=== PATIENT | female | born 1930 | race Caucasian/White ===

== ENCOUNTER 2016-10-11 05:34 | Day surgery (SDC) | payer MEDICARE ==
[2016-10-11] MEDS ORDERED: Dextrose 5%-Lactated Ringers 1,000 ML IV SCH (06:30)
[2016-10-11] MEDS ORDERED: fentaNYL 100 MCG/2 ML SDV ONE (07:14)
[2016-10-11] MEDS ORDERED: Propofol 200 MG/20 ML SDV ONE (07:14)
[2016-10-11] MEDS ORDERED: Ampicillin/Sulbactam Na 3 GM in Sodium Chloride 0.9% 100 ML IV ONE ×4 (07:30)
[2016-10-11] MEDS ORDERED: Glycopyrrolate 0.2 MG/ML 2 ML SDV IVPUSH ONE (07:30)
[2016-10-11] MEDS ORDERED: Ondansetron 4 MG/2 ML SDV IVPUSH PRN (08:58)
[2016-10-11] MEDS ORDERED: HYDROmorphone 1 MG/ML Syringe IVPUSH PRN (09:00)
[2016-10-11 10:42] VITALS: BP 166/76
--- NOTE | 2016-10-17 13:40 | OR ---
DATE OF PROCEDURE: 10/11/2016 PREOPERATIVE DIAGNOSIS: Epigastric pain and nausea. POSTOPERATIVE DIAGNOSES: 1. No significant inflammation at the esophagogastric junction. 2. Multiple gastric polyps involving fundus and body of stomach. 3. Diffuse antral gastritis. OPERATIVE PROCEDURE: Esophagogastroduodenoscopy with: 1. Biopsies of antrum for CLOtest ([id number]). 2. Polypectomy of polyps involving gastric body x2 ([id number]). ANESTHESIA: IV sedation. INDICATION FOR PROCEDURE: An 86-year-old female presenting with some epigastric pain and some degree of nausea. She is presently on omeprazole 40 mg a day. Plan is proceed with an upper GI endoscopy with biopsies as indicated. Potential risks including bleeding and perforation were discussed, and the patient wishes to proceed. DETAILS OF PROCEDURE: The patient was taken to the operating room and placed in a left lateral decubitus position. IV sedation was administered, after which the upper GI endoscope was passed orally through the length of the esophagus and into the stomach with retroflexion view of the fundus, and thereafter through the pyloric channel and the duodenum to the junction of the third and fourth portions of the duodenum. The findings included normal hypopharynx, larynx, upper esophageal sphincter, and esophageal body. At the EG junction, no significant inflammation was noted. There was no upward extension of the columnar mucosa. The patient was noted to have a small hiatal hernia, but again without significant inflammation. Upon entering the stomach, the patient was noted to have multiple gastric polyps involving the fundus and body. 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 Apart from that, the patient had a moderate diffuse antral gastritis. The duodenum was unremarkable. At this point, biopsies were obtained from the antrum and sent for CLOtest for H. pylori to confirm the histologic nature of the gastric polyps. Two of these were excised by means of the snare technique and removed for histologic evaluation. No significant bleeding from the biopsy or polypectomy sites was seen, and the procedure was then concluded. The patient was taken to the recovery room in satisfactory condition. The patient has an appointment with Dina Gallo CNP at around 2 weeks. If the patient continues to have symptoms on the present medical management, something like Cytotec or Carafate might be useful with regard to symptom control. Valentino Du MD /[id number]
== END 2016-10-11 12:02 | disposition home or self-care (01) ==
LOC: JP.SDS 05:34
PROVIDERS: ATTEND Surgery
DX: K31.7 Polyp of stomach and duodenum (principal); K29.50 Unspecified chronic gastritis without bleeding; K44.9 Diaphragmatic hernia without obstruction or gangrene; I10 Essential (primary) hypertension; K21.9 Gastro-esophageal reflux disease without esophagitis; E78.00 Pure hypercholesterolemia, unspecified; E03.9 Hypothyroidism, unspecified; Z88.8 Allergy status to other drugs, medicaments and biological substances; Z91.09 Other allergy status, other than to drugs and biological substances; Z87.891 Personal history of nicotine dependence; Z90.49 Acquired absence of other specified parts of digestive tract; Z98.890 Other specified postprocedural states; Z96.649 Presence of unspecified artificial hip joint; Z94.0 Kidney transplant status
CPT/HCPCS: 43239; 43251; 87081; 88305; J0295; J2405; J2704; J3010; J7030; J7042; J3490

== ENCOUNTER 2017-09-12 07:20 | Day surgery (SDC) | payer MEDICARE ==
[~2017-09-12 07:20] MED LIST: Propofol 200 MG/20 ML SDV ONE
[2017-09-12] MEDS ORDERED: Dextrose 5%-Lactated Ringers 1,000 ML IV SCH (07:45)
[2017-09-12] MEDS ORDERED: Glycopyrrolate 0.2 MG/ML 2 ML SDV IVPUSH ONE (08:15)
[2017-09-12 10:51] VITALS: BP 143/68
--- NOTE | 2017-09-18 13:25 | OR ---
DATE OF PROCEDURE: 09/12/2017 PREOPERATIVE DIAGNOSIS: History of peptic ulcer disease with upcoming major surgery. POSTOPERATIVE DIAGNOSIS: Scattered fundic gastric polyps, but otherwise normal examination. OPERATIVE PROCEDURES: Upper GI endoscopy with biopsies of antrum for CLOtest. ANESTHESIA: IV sedation. INDICATION FOR PROCEDURE: This is an 87-year-old, who is having an upcoming orthopedic surgery with Dr. Kim, with history of previous GI bleeding issues, wished to have a followup endoscopy to make sure we are not dealing with any persistent problems in that regard. She does have a known history of some gastric fundic polyps, which had previously been biopsied, related to long-term proton pump inhibitor use. Potential risks including bleeding and perforation were discussed, and the patient wishes to proceed. DETAILS OF PROCEDURE: The patient was taken to the operating room and placed in a left lateral decubitus position. IV sedation was administered, after which the upper GI endoscope was passed orally through the length of the esophagus and into the stomach with retroflexion view of the fundus, and thereafter through the pyloric channel and into the junction of the third and fourth portions of the duodenum. Findings included normal hypopharynx, larynx, upper esophageal sphincter, and esophageal body. At the EG junction, no significant hiatal hernia, inflammation, or stricturing were present. Within the stomach, there was some scattered gastric fundic type polyps located in the fundus and body of the stomach. None of these appeared to be worrisome to any extent and were not associated with any inflammation or ulceration. The antrum had no significant inflammation as well at this point, and the pyloric channel and the visualized portions of the duodenum were unremarkable. To assess the patient's current H. pylori status, biopsies were obtained from the antrum. Minimal bleeding from the biopsy site was seen and the procedure then concluded. The patient was taken to the recovery room in a satisfactory condition. There were no evident complications. Dr. Kim's office will be notified. From a GI standpoint, she can proceed with the upcoming orthopedic surgery. Valentino Du MD /[id number]
== END 2017-09-12 11:10 | disposition home or self-care (01) ==
LOC: JP.SDS 07:20
PROVIDERS: ATTEND Surgery
DX: K31.7 Polyp of stomach and duodenum (principal); I10 Essential (primary) hypertension; E03.9 Hypothyroidism, unspecified; E78.5 Hyperlipidemia, unspecified; K21.9 Gastro-esophageal reflux disease without esophagitis; Z88.2 Allergy status to sulfonamides; Z88.8 Allergy status to other drugs, medicaments and biological substances; Z91.048 Other nonmedicinal substance allergy status; Z87.891 Personal history of nicotine dependence
CPT/HCPCS: 43239; 87081; J2704; J7042; J3490

== ENCOUNTER 2018-12-28 13:06 | Emergency (ER) | payer MEDICARE ==
--- NOTE | 2018-12-28 14:28 | EDM.PDOC ---
ED HPI GENERAL MEDICAL PROBLEM - General Chief Complaint: Abdominal Pain Stated Complaint: became faint and had stomach pains before Time Seen by Provider: 12/28/18 14:14 Source of Information: Reports: Patient History Limitations: Reports: No Limitations - History of Present Illness INITIAL COMMENTS - FREE TEXT/NARRATIVE: 88-year-old female arrives after several complaints. Yesterday she had chest pain for a half hour to 45 minutes but then after she relieve some "gas" she felt better. Today she was feeling better but then while sitting on the bed developed a very sharp sudden abdominal pain followed by dizziness, diaphoresis and lightheadedness. She laid down and thinks she fainted for a few minutes because when she woke up she had had stool incontinence in the bed. 4 hours later she now feels fairly normal, but [facility] when they questioned her how she was feeling and she told them the story and they told her to come immediately to the emergency room. She states still just feels a little "off" but has no pain, no dizziness, no lightheadedness, no fever or chills, no nausea or vomiting. Associated Symptoms: Reports: Chest Pain, Weakness. Denies: Cough, Nausea/ Vomiting, Shortness of Breath - Related Data Allergies Allergy/AdvReac Type Severity Reaction Status Date / Time Sulfa (Sulfonamide Allergy Hives Verified 12/28/18 13:59 Antibiotics) lisinopril AdvReac Cough Verified 12/28/18 13:59 sucralfate [From Carafate] AdvReac Abdominal Verified 12/28/18 13:59 Pain adhesive tape Allergy Rash Uncoded 12/28/18 13:59 grassleaf sweetflag rhizome Allergy Itching Uncoded 12/28/18 13:59 Home Meds: Home Meds Aspirin [Adult Low Dose Aspirin EC] 81 mg PO DAILY 02/04/13 [History] Docusate Sodium [Colace] 100 mg PO DAILY 02/04/13 [History] Levothyroxine [Synthroid] 88 mcg PO DAILY 02/04/13 [History] Omeprazole [Prilosec] 40 mg PO DAILY 02/04/13 [History] Acetaminophen [Tylenol Arthritis] 650 mg PO Q6H PRN 10/07/16 [History] Cetirizine [ZyrTEC] 10 mg PO DAILY 10/07/16 [History] Fluticasone Propionate [Flonase Allergy Relief] 2 spray NASBOTH DAILY 10/07/16 [ History] Montelukast [Singulair] 10 mg PO BEDTIME 10/07/16 [History] Propranolol [Inderal] 10 mg PO DAILY 09/05/17 [History] Past Medical History HEENT History: Reports: Allergic Rhinitis, Impaired Vision Cardiovascular History: Reports: Heart Murmur, High Cholesterol Gastrointestinal History: Reports: Cholelithiasis, Chronic Constipation, Diverticulosis, GERD Genitourinary History: Reports: None 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: Musculoskeletal History: Reports: Arthritis, Fracture, Other (See Below) Other Musculoskeletal History: left shoulder pain Endocrine/Metabolic History: Reports: Hypothyroidism Hematologic History: Reports: Anemia, Blood Transfusion(s), Iron Deficiency Oncologic (Cancer) History: Reports: Basal Cell Carcinoma - Infectious Disease History Infectious Disease History: Reports: Chicken Pox, Measles, Mumps, Scarlet Fever - Past Surgical History HEENT Surgical History: Reports: Visual Cardiovascular Surgical History: Reports: None GI Surgical History: Reports: Cholecystectomy, Colonoscopy, EGD Female Surgical History: Reports: D&C, Other (See Below) 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 Denies: Fever, Chills HEENT: Reports: No Symptoms Respiratory: Denies: Shortness of Breath, Cough Cardiovascular: Reports: Chest Pain (Chest pain was last evening lasted 30-45 minutes) GI/Abdominal: Reports: Abdominal Pain, Diarrhea : Reports: Incontinence Skin: Reports: No Symptoms Neurological: Reports: Syncope, Weakness ED EXAM, GI/ABD - Physical Exam Exam: See Below Exam Limited By: No Limitations General Appearance: Alert, No Apparent Distress Eyes: Bilateral: Normal Appearance Respiratory/Chest: No Respiratory Distress, Lungs Clear Cardiovascular: Regular Rate, Rhythm GI/Abdominal Exam: Tender (No guarding or rebound but some mild periumbilical tenderness is present. She also has a broad-based reducible soft and nontender hernia on the right lateral abdomen.), Abnormal Bowel Sounds (Bowel sounds are hyperactive, not high-pitched) Extremities: No: Pedal Edema Neurological: Alert, Oriented Psychiatric: Normal Affect, Normal Mood Skin Exam: Warm, Dry Course - Vital Signs Last Recorded V/S: Last Vital Signs Temp 98.8 F 12/28/18 14:04 Pulse 63 12/28/18 15:11 Resp 16 12/28/18 15:11 BP 151/82 H 12/28/18 15:11 Pulse Ox 100 12/28/18 15:11 - Orders/Labs/Meds Labs: Laboratory Tests 12/28/18 12/28/18 Range/Units 14:28 14:50 WBC 11.1 H (4.5-11.0) K/uL RBC 5.15 (3.30-5.50) M/uL Hgb 12.2 (12.0-15.0) g/dL Hct 38.3 (36.0-48.0) % MCV 74 L (80-98) fL MCH 24 L (27-31) pg MCHC 32 (32-36) % Plt Count 430 H (150-400) K/uL Neut % (Auto) 56 (36-66) % Lymph % (Auto) 27 (24-44) % Dare % (Auto) 13 H (2-6) % Eos % (Auto) 5 H (2-4) % Baso % (Auto) 0 (0-1) % Sodium 133 L (140-148) mmol/L Potassium 4.6 (3.6-5.2) mmol/L Chloride 99 L (100-108) mmol/L Carbon Dioxide 26 (21-32) mmol/L Anion Gap 12.6 (5.0-14.0) mmol/L BUN 26 H (7-18) mg/dL Creatinine 1.0 (0.6-1.0) mg/dL Est Cr Clr Drug Dosing 33.85 mL/min Estimated GFR (MDRD) 53 L (>60) Glucose 101 (74-106) mg/dL Calcium 9.5 (8.5-10.1) mg/dL Total Bilirubin 0.4 (0.2-1.0) mg/dL AST 16 (15-37) U/L ALT 21 (12-78) U/L Alkaline Phosphatase 92 (46-116) U/L Troponin I < 0.017 (0.000-0.056) ng/mL Total Protein 7.0 (6.4-8.2) g/dL Albumin 3.6 (3.4-5.0) g/dL Globulin 3.4 (2.3-3.5) g/dL Albumin/Globulin Ratio 1.1 L (1.2-2.2) - Re-Assessments/Exams Free Text/Narrative Re-Assessment/Exam: 12/28/18 14:30 Explained to the patient that I'm actually more concerned about her chest pain last night than her brief sharp abdominal pain which was likely functional or gas and followed by vasovagal syncope. A CBC CMP and troponin were obtained. 12/28/18 15:26 Patient remained asymptomatic while in the emergency room. All labs returned reassuring, hemoglobin normal, troponin negative, LFTs and electrolytes normal. She'll be discharge with a diagnosis of vasovagal syncope after abdominal pain. She'll return if symptoms are recurring but no further workup is necessary at this time. Departure - Departure Time of Disposition: 15:48 Disposition: Home, Self-Care 01 Clinical Impression: Vasovagal syncopes Abdominal pain Qualifiers: Abdominal location: upper abdomen, unspecified Qualified Code(s): R10.10 - Upper abdominal pain, unspecified - Discharge Information Instructions: Syncope Referrals: Rupesh Kim MD [Primary Care Provider] - Forms: ED Department Discharge Care Plan Goals: Continue any current medications, activity as tolerated and return for recheck if symptoms are recurring or you develop other concerns. You experienced vasovagal syncope.
[2018-12-28 15:12] VITALS: BP 151/82; PULSE 63
== END 2018-12-28 15:48 | disposition home or self-care (01) ==
LOC: JP.ED 13:06
DX: R55 Syncope and collapse (principal); R10.10 Upper abdominal pain, unspecified; E03.9 Hypothyroidism, unspecified; K21.9 Gastro-esophageal reflux disease without esophagitis; Z88.8 Allergy status to other drugs, medicaments and biological substances; Z88.2 Allergy status to sulfonamides; Z91.048 Other nonmedicinal substance allergy status; Z79.82 Long term (current) use of aspirin; Z87.891 Personal history of nicotine dependence
CPT/HCPCS: 36415; 80053; 84484; 85025; 99283

== ENCOUNTER 2019-03-16 09:32 | Emergency (ER) | payer MEDICARE ==
[2019-03-16 09:52] VITALS: BP 188/66; PULSE 68
[2019-03-16] MEDS ORDERED: Bacitracin Oint 1 GM U/D Packet TOP ONE (10:19)
[2019-03-16] MEDS ORDERED: Acetaminophen 325 MG Tab PO ONE (10:19)
--- NOTE | 2019-03-16 10:25 | EDM.PDOC ---
ED HPI GENERAL MEDICAL PROBLEM - General Chief Complaint: Head Injury Stated Complaint: FELL AND HIT HEAD Time Seen by Provider: 03/16/19 10:14 Source of Information: Reports: Patient, Family, RN Notes Reviewed History Limitations: Reports: No Limitations - History of Present Illness INITIAL COMMENTS - FREE TEXT/NARRATIVE: 88-year-old female presents emergency with a complaint of head injury with loss of consciousness, she states she has had some dizziness in the past initially woke up this morning feeling somewhat dizzy lightheaded so she describes it was making herself something to eat next thing she knew she awoke on the ground unsure of how long she was out this was an unwitnessed event she did injure herself with the fall with a laceration to the back of the head. She was able to go to the phone call for help while leaning on a chair lost consciousness again because she felt lightheaded. Headache Pain Score (Numeric/FACES): 8 - Related Data Allergies Allergy/AdvReac Type Severity Reaction Status Date / Time Sulfa (Sulfonamide Allergy Hives Verified 03/16/19 09:52 Antibiotics) lisinopril AdvReac Cough Verified 03/16/19 09:52 sucralfate [From Carafate] AdvReac Abdominal Verified 03/16/19 09:52 Pain adhesive tape Allergy Rash Uncoded 03/16/19 09:52 grassleaf sweetflag rhizome Allergy Itching Uncoded 03/16/19 09:52 Home Meds: Home Meds Aspirin [Adult Low Dose Aspirin EC] 81 mg PO DAILY 02/04/13 [History] Docusate Sodium [Colace] 100 mg PO DAILY 02/04/13 [History] Levothyroxine [Synthroid] 88 mcg PO DAILY 02/04/13 [History] Omeprazole [Prilosec] 40 mg PO DAILY 02/04/13 [History] Acetaminophen [Tylenol Arthritis] 650 mg PO Q6H PRN 10/07/16 [History] Cetirizine [ZyrTEC] 10 mg PO DAILY 10/07/16 [History] Montelukast [Singulair] 10 mg PO BEDTIME 10/07/16 [History] Propranolol [Inderal] 10 mg PO DAILY 09/05/17 [History] Past Medical History HEENT History: Reports: Allergic Rhinitis, Impaired Vision Cardiovascular History: Reports: Heart Murmur, High Cholesterol Gastrointestinal History: Reports: Cholelithiasis, Chronic Constipation, Diverticulosis, GERD 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: Musculoskeletal History: Reports: Arthritis, Fracture, Other (See Below) Other Musculoskeletal History: left shoulder pain Endocrine/Metabolic History: Reports: Hypothyroidism Hematologic History: Reports: Anemia, Blood Transfusion(s), Iron Deficiency Oncologic (Cancer) History: Reports: Basal Cell Carcinoma - Infectious Disease History Infectious Disease History: Reports: Chicken Pox, Measles, Mumps, Scarlet Fever - Past Surgical History Head Surgeries/Procedures: Reports: None HEENT Surgical History: Reports: Cataract Surgery, Eye Surgery, Visual, Other ( See Below) Cardiovascular Surgical History: Reports: None GI Surgical History: Reports: Cholecystectomy, Colonoscopy, EGD Female Surgical History: Reports: D&C, Other (See Below) 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 Endocrine Surgical History: Reports: None Musculoskeletal Surgical History: Reports: Carpal Tunnel, Hip Replacement, Shoulder Replacement Oncologic Surgical History: Reports: None Dermatological Surgical History: Reports: None Social & Family History - Family History Family Medical History: Noncontributory - Tobacco Use Smoking Status *Q: Former Smoker Used Tobacco, but Quit: Yes Month/Year Tobacco Last Used: 1985 - Caffeine Use Caffeine Use: Reports: Tea - Recreational Drug Use Recreational Drug Use: No ED ROS GENERAL - Review of Systems Review Of Systems: See Below Constitutional: Reports: No Symptoms HEENT: Reports: No Symptoms Respiratory: Reports: No Symptoms Cardiovascular: Reports: Lightheadedness, Syncope GI/Abdominal: Reports: No Symptoms : Reports: No Symptoms Musculoskeletal: Reports: No Symptoms Skin: Reports: No Symptoms Neurological: Reports: Dizziness, Syncope ED EXAM, HEAD INJURY - Physical Exam Exam: See Below Text/Narrative:: Primary survey GCS 15 airways open patent and clear lungs are clear to auscultation bilaterally cardiovascular demonstrates regular rate and rhythm S1- S2 Secondary survey General: Female, not in any distress, GCS 15, alert and oriented x3 HEENT: head is circular laceration appreciated occipital region scalp approximately 3 cm normocephalic, right eye equal reactive to light left eye fixed and dilated anisocoria is not new, sclera clear no conjunctivitis appreciated. Ears tympanic membranes clear and foster landmarks and light reflex are present bilaterally canals are clear. Nose no septal deviation, nares are clear, no blood present. Mouth mucosa is moist and pink no erythema or exudate noted in soft palate, tongue is midline uvula is midline, dentures in place. Neck: Supple no thyromegaly no tracheal deviation. NO posterior midline C-spine tenderness NO evidence of intoxication GCS > 14 No focal neurological deficit NO distracting injury Nodes: Cervical nodes subclavicular nodes nontender no palpable lymphadenopathy noted. Lungs: clear to auscultation bilaterally with symmetrical respirations, no adventitious noise appreciated. CV: Regular rate and rhythm S1 and S2 appreciated no murmurs rubs or gallops noted. Abdomen: Soft, nontender, no palpable masses or organomegaly appreciated, no distention no guarding bowel sounds are present, [scars ]. Neuro: GCS 15 Skin: Warm and dry, intact Extremities: No tenderness shoulders elbows wrist bilaterally pelvic rocks is negative no tenderness to the knees ankles bilaterally ED LACERATION/WOUND & SHAWN PROC - Laceration/Wound Repair Head Lac/wound length in cm: 3 Appearance: Subcutaneous, Irregular Distal NVT: Neuro & Vascular Intact, No Tendon Injury Anesthetic Type: Local Local Anesthesia - Lidocaine (Xylocaine): 1% with EPI Local Anesthetic Volume: 2cc Skin Prep: Saline Saline irrigation (cc's): 60 Exploration/Debridement/Repair: Wound Explored, In a Bloodless Field, Explored to Base Closed with: Flores # of Sutures: 4 Drain Placement: No Sterile Dressing Applied: None Tetanus Status Addressed: Yes Complications: No Course - Vital Signs Last Recorded V/S: Last Vital Signs Temp 97.7 F 03/16/19 09:58 Pulse 68 03/16/19 09:58 Resp 16 03/16/19 09:58 BP 188/66 H 03/16/19 09:58 Pulse Ox 97 03/16/19 09:58 - Orders/Labs/Meds Orders: Active Orders 24 hr Category Date Time Status EKG Documentation Completion [RC] ASDIRECTED Care 03/16/19 10:21 Active EKG 12 Lead [EK] Stat Ther 03/16/19 10:21 Ordered Meds: Medications Discontinued Medications Generic Name Dose Route Start Last Admin Trade Name Freq PRN Reason Stop Dose Admin Acetaminophen 650 mg 03/16/19 10:19 03/16/19 10:23 Tylenol PO 03/16/19 10:20 650 mg NOW ONE Administration Bacitracin 1 dose 03/16/19 10:19 03/16/19 10:24 Bacitracin Oint 1 Gm TOP 03/16/19 10:20 1 dose ONETIME ONE Administration Lidocaine/Epinephrine 20 ml 03/16/19 10:30 03/16/19 10:43 Xylocaine 1% With Epinephrine 1:100,000 SUBCUT 03/16/19 10:31 20 ml NOW STA Administration Meclizine HCl 25 mg 03/16/19 11:09 03/16/19 11:14 Antivert PO 03/16/19 11:10 25 mg ONETIME ONE Administration Departure - Departure Time of Disposition: 12:34 Disposition: Home, Self-Care 01 Condition: Fair Clinical Impression: Head injury, Scalp laceration, Syncope - Discharge Information Referrals: Rupesh Kim MD [Primary Care Provider] - Forms: ED Department Discharge Additional Instructions: Use meclizine as needed for dizzy symptoms, please followup with your primary care provider in 3-5 days if not better, please call return to the emergency department with worsening of symptoms. Sepsis Event Note - Evaluation Sepsis Screening Result: No Definite Risk - Focused Exam Vital Signs: Vital Signs Temp Pulse Resp BP Pulse Ox 03/16/19 09:58 97.7 F 68 16 188/66 H 97 03/16/19 09:51 97.7 F 68 16 188/66 H 97 Date Exam was Performed: 03/16/19 Time Exam was Performed: 12:32 - My Orders Last 24 Hours: My Active Orders 03/16/19 10:21 EKG Documentation Completion [RC] ASDIRECTED EKG 12 Lead [EK] Stat - Assessment/Plan Last 24 Hours: My Active Orders 03/16/19 10:21 EKG Documentation Completion [RC] ASDIRECTED EKG 12 Lead [EK] Stat Plan: Assessment Acuity = acute Site and laterality = head injury with 3 cm laceration occipital region of the scalp Etiology = secondary to fall by syncope Manifestations = lightheadedness Location of injury = Home Lab values = EKG demonstrates sinus rhythm right bundle branch block with PVCs, CT scan of the head reveals no acute intracranial process, right shoulder x-ray shows no acute process Plan She had good relief with combination Tylenol and meclizine plan is to discharge home follow-up primary care 3 to 5 days if no improvement, staple removal in 10 days, prescription written for meclizine 25 mg p.o. 3 times daily PRN total #100 This note was dictated using [employer] recognition software please call with any questions on syntax or grammar.
[2019-03-16] MEDS ORDERED: Lidocaine 1% with EPINEPHrine 1:100,000 50 ML MDV SUBCUT STA (10:30)
--- NOTE | 2019-03-16 11:08 | CRLCT ---
INDICATION: FALL, LOC. Comparison: Head CT dated 08/02/18 Technique: Non-contrast head CT scan. Findings: Diffuse decreased attenuation of the periventricular white matter which likely represents small vessel ischemic disease. No other abnormal foci of altered attenuation in the brain parenchyma. No midline shift or mass effect. No hydrocephalus. No abnormal extra-axial fluid collections. Mild atrophic changes of the brain parenchyma. No abnormalities identified in the visualized portions of the paranasal sinuses, skull, and scalp. Impression: No evidence of acute intracranial abnormalities. Please note that all CT scans at this facility use dose modulation, iterative reconstruction, and/or weight-based dosing when appropriate to reduce radiation dose to as low as reasonably achievable. Dictated by: Julio C Scott MD @ 03/16/2019 11:06:39 (Electronically Signed)
[2019-03-16] MEDS ORDERED: Meclizine 25 MG Tab PO ONE (11:09)
--- NOTE | 2019-03-16 12:18 | CRLCR ---
Indication: Pain. Technique: Three views of the right shoulder. Comparison: None Findings: The humeral head is high riding which can be seen with rotator cuff pathology. The humeral head is seated within the glenoid. Degenerative changes are identified at the acromioclavicular and glenohumeral joint spaces. Impression: Degenerative change. Dictated by Marsha Mcclelland MD @ Mar 16 2019 12:16PM Signed by Dr. Marsha Mcclelland @ Mar 16 2019 12:17PM
== END 2019-03-16 12:55 | disposition home or self-care (01) ==
LOC: JP.ED 09:32
DX: R55 Syncope and collapse (principal); S01.01XA Laceration without foreign body of scalp, initial encounter; E78.00 Pure hypercholesterolemia, unspecified; E03.9 Hypothyroidism, unspecified; Z88.2 Allergy status to sulfonamides; Z91.09 Other allergy status, other than to drugs and biological substances; Z79.899 Other long term (current) drug therapy; Z79.82 Long term (current) use of aspirin; Z88.8 Allergy status to other drugs, medicaments and biological substances; W19.XXXA Unspecified fall, initial encounter
CPT/HCPCS: 12002; 70450; 73030; 93005; 93010; 99283; 99284; A9270

== ENCOUNTER 2019-07-01 19:02 | Observation (INO) | payer MEDICARE ==
[2019-07-01] MEDS ORDERED: fentaNYL 100 MCG/2 ML SDV IVPUSH ONE ×2 (19:38→21:09)
[2019-07-01] MEDS ORDERED: Sodium Chloride 0.9% 10 ML Syringe FLUSH PRN (19:38)
--- NOTE | 2019-07-01 19:42 | EDM.PDOC ---
ED HPI GENERAL MEDICAL PROBLEM - General Chief Complaint: Lower Extremity Injury/Pain Stated Complaint: HIP PAIN Time Seen by Provider: 07/01/19 19:29 Source of Information: Reports: Patient History Limitations: Reports: Physical Impairment - History of Present Illness INITIAL COMMENTS - FREE TEXT/NARRATIVE: Patient presents with a friend after developing sudden, severe right hip pain while climbing into her vehicle this evening. 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 She was able to hobble into her house but did so very painfully. She had too much pain to bring herself here and had a friend drive her. She has had right hip replacement 3 or 4 years ago she believes. She did not fall. No recent injuries to her lower extremities or pelvis. Onset: Today, Sudden Duration: Hour(s): (Two) Location: Reports: Back, Pelvis, Lower Extremity, Right Quality: Reports: Sharp, Stabbing Severity: Severe Improves with: Reports: None Worsens with: Reports: Movement Associated Symptoms: Reports: No Other Symptoms Right Hip Pain Score (Numeric/FACES): 10 - Related Data Allergies Allergy/AdvReac Type Severity Reaction Status Date / Time Sulfa (Sulfonamide Allergy Hives Verified 07/02/19 00:46 Antibiotics) lisinopril AdvReac Cough Verified 07/02/19 00:46 sucralfate [From Carafate] AdvReac Abdominal Verified 07/02/19 00:46 Pain adhesive tape Allergy Rash Uncoded 07/02/19 00:46 grassleaf sweetflag rhizome Allergy Itching Uncoded 07/02/19 00:46 Home Meds: Home Meds Aspirin [Adult Low Dose Aspirin EC] 81 mg PO DAILY 02/04/13 [History] Docusate Sodium [Colace] 100 mg PO DAILY 02/04/13 [History] Levothyroxine [Synthroid] 88 mcg PO DAILY 02/04/13 [History] Omeprazole [Prilosec] 40 mg PO DAILY 02/04/13 [History] Acetaminophen [Tylenol Arthritis] 650 mg PO Q6H PRN 10/07/16 [History] Cetirizine [ZyrTEC] 10 mg PO DAILY 10/07/16 [History] Montelukast [Singulair] 10 mg PO BEDTIME 10/07/16 [History] Propranolol [Inderal] 10 mg PO DAILY 09/05/17 [History] Past Medical History HEENT History: Reports: Allergic Rhinitis, Impaired Vision Cardiovascular History: Reports: Heart Murmur, High Cholesterol Gastrointestinal History: Reports: Cholelithiasis, Chronic Constipation, Diverticulosis, GERD Genitourinary History: Reports: None MANAGER OF DEVELOPMENT History: Reports: Musculoskeletal History: Reports: Arthritis, Fracture, Other (See Below) Other Musculoskeletal History: left shoulder pain Endocrine/Metabolic History: Reports: Hypothyroidism Hematologic History: Reports: Anemia, Blood Transfusion(s), Iron Deficiency Oncologic (Cancer) History: Reports: Basal Cell Carcinoma - Infectious Disease History Infectious Disease History: Reports: Chicken Pox, Measles, Mumps, Scarlet Fever - Past Surgical History Head Surgeries/Procedures: Reports: None HEENT Surgical History: Reports: Cataract Surgery, Eye Surgery, Visual, Other ( See Below) Cardiovascular Surgical History: Reports: None GI Surgical History: Reports: Cholecystectomy, Colonoscopy, EGD Female Surgical History: Reports: D&C, Other (See Below) 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 Endocrine Surgical History: Reports: None Musculoskeletal Surgical History: Reports: Carpal Tunnel, Hip Replacement, Shoulder Replacement Oncologic Surgical History: Reports: None Dermatological Surgical History: Reports: None Social & Family History - Family History Family Medical History: Noncontributory - Caffeine Use Caffeine Use: Reports: Tea Review of Systems - Review of Systems Review Of Systems: See Below Respiratory: Reports: No Symptoms Cardiovascular: Reports: No Symptoms Musculoskeletal: Reports: Back Pain (Right low lumbar region.), Leg Pain (Right hip and thigh region) Neurological: Denies: Numbness, Weakness ED EXAM, GENERAL - Physical Exam Exam: See Below Exam Limited By: No Limitations General Appearance: Moderate Distress (With palpation or manipulation of the right leg and thigh.) Respiratory/Chest: No Respiratory Distress Cardiovascular: Regular Rate, Rhythm Extremities: Leg Pain, Limited Range of Motion (Attempts at manipulation and circumduction of the right hip region results in severe pain. Palpation along the lateral and posterior aspect of the right hip also produces intense pain. There is pain to a lesser degree in the right low back region and pelvis.) Neurological: Normal Cognition Course - Vital Signs Last Recorded V/S: Last Vital Signs Temp 36.4 C 07/02/19 00:00 Pulse 78 07/02/19 00:00 Resp 18 07/02/19 00:00 BP 175/61 H 07/02/19 00:00 Pulse Ox 91 L 07/02/19 00:00 - Orders/Labs/Meds Orders: Active Orders 24 hr Category Date Time Status Sodium Chloride 0.9% [Saline Flush] Med 07/01/19 19:38 Active 10 ml FLUSH ASDIRECTED PRN Saline Lock Insert [OM.PC] Routine Oth 07/01/19 19:38 Ordered Medication Orders Acetaminophen (Tylenol) 650 mg PO Q6H PRN PRN Reason: Pain Aspirin (Halfprin) 81 mg PO DAILY ZAHIDA Cetirizine HCl (Zyrtec) 10 mg PO DAILY ZAHIDA Docusate Sodium (Colace) 100 mg PO DAILY ZAHIDA Hydromorphone HCl (Dilaudid) 0.5 mg IVPUSH Q1H PRN PRN Reason: Pain Last Admin: 07/02/19 01:36 Dose: 0.5 mg Levothyroxine Sodium (Synthroid) 88 mcg PO ACBREAKFAST ZAHIDA Montelukast Sodium (Singulair) 10 mg PO BEDTIME ZAHIDA Ondansetron HCl (Zofran) 4 mg IV Q4H PRN PRN Reason: Nausea/Vomiting Pantoprazole Sodium (Protonix) 40 mg PO ACBREAKFAST ZAHIDA Propranolol HCl (Inderal) 10 mg PO DAILY ZAHIDA Sodium Chloride (Saline Flush) 10 ml FLUSH ASDIRECTED PRN PRN Reason: Keep Vein Open Last Admin: 07/01/19 19:53 Dose: 10 ml Sodium Chloride (Saline Flush) 10 ml FLUSH ASDIRECTED PRN PRN Reason: Keep Vein Open Meds: Medications Generic Name Dose Route Start Last Admin Trade Name Freq PRN Reason Stop Dose Admin Acetaminophen 650 mg 07/02/19 00:19 Tylenol PO Q6H PRN Pain Aspirin 81 mg 07/02/19 09:00 Halfprin PO DAILY ZAHIDA Cetirizine HCl 10 mg 07/02/19 09:00 Zyrtec PO DAILY ZAHIDA Docusate Sodium 100 mg 07/02/19 09:00 Colace PO DAILY ZAHIDA Hydromorphone HCl 0.5 mg 07/02/19 00:06 07/02/19 01:36 Dilaudid IVPUSH 0.5 mg Q1H PRN Administration Pain Levothyroxine Sodium 88 mcg 07/02/19 07:30 Synthroid PO ACBREAKFAST ZAHIDA Montelukast Sodium 10 mg 07/02/19 21:00 Singulair PO BEDTIME ZAHIDA Ondansetron HCl 4 mg 07/02/19 00:00 Zofran IV Q4H PRN Nausea/Vomiting Pantoprazole Sodium 40 mg 07/02/19 07:30 Protonix PO ACBREAKFAST ZAHIDA Propranolol HCl 10 mg 07/02/19 09:00 Inderal PO DAILY ZAHIDA Sodium Chloride 10 ml 07/01/19 19:38 07/01/19 19:53 Saline Flush FLUSH 10 ml ASDIRECTED PRN Administration Keep Vein Open Sodium Chloride 10 ml 07/02/19 00:00 Saline Flush FLUSH ASDIRECTED PRN Keep Vein Open Discontinued Medications Generic Name Dose Route Start Last Admin Trade Name Freq PRN Reason Stop Dose Admin Fentanyl 50 mcg 07/01/19 19:38 07/01/19 19:52 Sublimaze IVPUSH 07/01/19 19:39 50 mcg ONETIME ONE Administration Fentanyl 50 mcg 07/01/19 21:09 07/01/19 21:29 Sublimaze IVPUSH 07/01/19 21:10 50 mcg ONETIME ONE Administration Hydromorphone HCl 0.5 mg 07/02/19 00:08 07/02/19 00:12 Dilaudid IVPUSH 07/02/19 00:09 0.5 mg ONETIME ONE Administration Ondansetron HCl 4 mg 07/01/19 21:41 07/01/19 21:46 Zofran IVPUSH 07/01/19 21:42 4 mg ONETIME ONE Administration - Re-Assessments/Exams Free Text/Narrative Re-Assessment/Exam: 07/01/19 21:12 Patient was given fentanyl 50 g for pain. I returned later to recheck and she was at least 50% better. X-ray of right hip and pelvis did not show any obvious abnormality to me. Outside radiology review is negative for fracture or abnormality as well. I discussed with her that because of the normal regular x- ray, I would do a CT scan of her hip region to look for occult fracture. Later, she requested an additional dose of pain medication and was given a second 50 g fentanyl dose. 07/02/19 02:[address] scan were eventually finalized and showed no evidence of fracture. I returned again to attempt to reexamine the hip, thigh, low back region. She continues to have sudden paroxysms of sharp stabbing pain in the right hip and back region. We discussed attempting to navigate at home using a wheeled walker and pain medication of choice versus admission here for possible additional consultation and imaging studies. Her one month ago and she is very nervous about being at home right now given the extent of her hip pain. There is no obvious occult fracture and I discussed with her that perhaps her pain is from [id number] contact when twisting and moving. I will discuss her case with the hospitalist application dba to arrange admission for intractable pain and appropriate additional evaluations. Departure - Departure Time of Disposition: 22:52 Disposition: Admitted As Inpatient 68 Condition: Fair Clinical Impression: Hip pain, right - Discharge Information Sepsis Event Note - Evaluation Sepsis Screening Result: No Definite Risk - Focused Exam Vital Signs: Vital Signs Temp Pulse Resp BP Pulse Ox 07/01/19 21:36 71 194/78 H 91 L 07/01/19 20:44 62 16 170/56 H 90 L 07/01/19 19:30 36.9 C 81 16 212/69 H 98 Date Exam was Performed: 07/02/19 Time Exam was Performed: 02:47 - My Orders Last 24 Hours: My Active Orders 07/01/19 19:38 Sodium Chloride 0.9% [Saline Flush] 10 ml FLUSH ASDIRECTED PRN Saline Lock Insert [OM.PC] Routine - Assessment/Plan Last 24 Hours: My Active Orders 07/01/19 19:38 Sodium Chloride 0.9% [Saline Flush] 10 ml FLUSH ASDIRECTED PRN Saline Lock Insert [OM.PC] Routine
--- NOTE | 2019-07-01 20:47 | CRLCR ---
INDICATION: severe right sided hip pain after getting into a car HISTORY: Severe right hip pain. COMPARISON: None. TECHNIQUE: AP radiograph of the pelvis, single view of the right hip. FINDINGS: There are postoperative changes of a right hip arthroplasty. No periprosthetic fracture is identified. No lucency is identified to indicate motion. Vascular calcifications. The symphysis pubis and superior/inferior pubic rami are intact. Degenerative changes at the left hip. No collapse of the left femoral head. Arcuate lines in the sacrum are intact. No soft tissue mass by plain film. No suspicious calcification. IMPRESSION: No fracture is identified in the pelvis or proximal femora. Dictated by Julio Suazo MD @ 07/01/2019 8:45:09 PM Dictated by: Julio Suazo MD @ 07/01/2019 20:45:16 (Electronically Signed)
[2019-07-01] MEDS ORDERED: Ondansetron 4 MG/2 ML SDV IVPUSH ONE (21:41)
--- NOTE | 2019-07-01 22:30 | CRLCT ---
INDICATION: Severe right hip and pelvic pain without known trauma. COMPARISON: Plain film same day. CT of the pelvis 11 October 2007. TECHNIQUE: Multi detector noncontrast images of the bony pelvis with axial, coronal and sagittal reformats. FINDINGS: Right hip bipolar arthroplasty prosthesis. No surrounding fracture or periprosthetic loosening. No evidence for significant fluid within the joint or surrounding soft tissues. Dystrophic mineralization in the hamstring tendons bilaterally. No muscle atrophy appreciated. 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 Degenerative disc and facet changes in the visualized lumbosacral spine. No sacral or pelvic fracture. 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 No erosion. Scattered atherosclerotic vascular calcifications. No fluid or mass in the visualized pelvis or groin. Presumed hysterectomy and oophorectomy. There is indistinct tissue planes and edema appearance surrounding slightly expanded distal iliopsoas muscle and adductor muscles and medial compartment muscles of the proximal visualized right thigh. No soft tissue mass or fluid collection. IMPRESSION: Subtle edema attenuation around the adductor muscles, iliopsoas and proximal medial compartment muscles at the medial proximal right thigh. Query recent direct trauma or muscle strain. Infection felt less likely but not excluded. No definitive mass. Degenerative changes of the left hip, symphysis pubis and sacroiliac joints and spine. Right hip prosthesis. Please note that all CT scans at this facility use dose modulation, iterative reconstruction, and/or weight-based dosing when appropriate to reduce radiation dose to as low as reasonably achievable. Dictated by Anshu Anderson MD @ Jul 02 2019 8:15AM Signed by Dr. Anshu Anderson @ Jul 02 2019 8:22AM
[2019-07-02] MEDS ORDERED: Ondansetron 4 MG/2 ML SDV IV PRN
[2019-07-02] MEDS ORDERED: Sodium Chloride 0.9% 10 ML Syringe FLUSH PRN
[2019-07-02] MEDS ORDERED: HYDROmorphone 0.5 MG/0.5 ML Syringe IVPUSH ONE (00:08)
[2019-07-02] MEDS: HYDROmorphone 0.5 MG/0.5 ML Syringe IVPUSH PRN ×3 (01:36→09:11)
[2019-07-02] MEDS ORDERED: Levothyroxine 88 MCG Tab PO SCH (07:30)
[2019-07-02] MEDS ORDERED: Pantoprazole 40 MG Tab.CR PO SCH (07:30)
[2019-07-02] MEDS ORDERED: Propranolol 40 MG Tab PO SCH (09:00)
--- NOTE | 2019-07-02 10:25 | PCM.CONS ---
H&P History of Present Illness - General Date of Service: 07/02/19 Admit Problem/Dx: Admission Diagnosis/Problem Admission Diagnosis/Problem Hip pain Source of Information: Patient, Provider History Limitations: Reports: No Limitations - History of Present Illness Initial Comments - Free Text/Narative: 88 year old female admitted from [facility] ED last night with sudden onset of right hip and low back pain. She has a history of a right total hip arthroplasty done a few years ago and other than an occasional aching with weather changes she has not had any problems with it. She had a sudden sharp pain while stepping into her vehicle last night. she does not report feeling any pop or crack at the time. Pain is in the right posterior hip and SI region and groin with some radiation into the thigh and up into the low back. She was able to weight bear with difficulty. She reports little change overnight. She was able to get up to the commode this morning with assist and increased pain. She has pain rated at 4/10 in bed. No radiation below the knee, no complaints of tingling or numbness Onset of Symptoms: Reports: Sudden Symptom Onset Date: 07/01/19 Location: Reports: Lower Extremity, Right (hip) Quality: Reports: Sharp, Stabbing Severity: Severe Improves with: Reports: Rest Worsens with: Reports: Movement Associated Symptoms: Reports: No Other Symptoms Right Hip Pain Score (Numeric/FACES): 4 - Related Data Allergies/Adverse Reactions: Allergies Allergy/AdvReac Type Severity Reaction Status Date / Time Sulfa (Sulfonamide Allergy Hives Verified 07/02/19 00:46 Antibiotics) lisinopril AdvReac Cough Verified 07/02/19 00:46 sucralfate [From Carafate] AdvReac Abdominal Verified 07/02/19 00:46 Pain adhesive tape Allergy Rash Uncoded 07/02/19 00:46 grassleaf sweetflag rhizome Allergy Itching Uncoded 07/02/19 00:46 Home Medications: Home Meds Aspirin [Adult Low Dose Aspirin EC] 81 mg PO DAILY 02/04/13 [History] Docusate Sodium [Colace] 100 mg PO DAILY 02/04/13 [History] Levothyroxine [Synthroid] 88 mcg PO DAILY 02/04/13 [History] Omeprazole [Prilosec] 40 mg PO DAILY 12/02/13 [History] Acetaminophen [Tylenol Arthritis] 650 mg PO Q6H PRN 10/07/16 [History] Cetirizine [ZyrTEC] 10 mg PO DAILY 10/07/16 [History] Montelukast [Singulair] 10 mg PO BEDTIME 10/07/16 [History] Propranolol [Inderal] 10 mg PO DAILY 09/05/17 [History] Past Medical History HEENT History: Reports: Allergic Rhinitis, Impaired Vision Cardiovascular History: Reports: Heart Murmur, High Cholesterol Gastrointestinal History: Reports: Cholelithiasis, Chronic Constipation, Diverticulosis, GERD Genitourinary History: Reports: None Other Genitourinary History: 1 kidney 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: Musculoskeletal History: Reports: Arthritis, Fracture, Other (See Below) Other Musculoskeletal History: left shoulder pain Endocrine/Metabolic History: Reports: Hypothyroidism Hematologic History: Reports: Anemia, Blood Transfusion(s), Iron Deficiency Oncologic (Cancer) History: Reports: Basal Cell Carcinoma - Infectious Disease History Infectious Disease History: Reports: Chicken Pox, Measles, Mumps, Scarlet Fever - Past Surgical History Head Surgeries/Procedures: Reports: None HEENT Surgical History: Reports: Cataract Surgery, Eye Surgery, Visual, Other ( See Below) Cardiovascular Surgical History: Reports: None GI Surgical History: Reports: Cholecystectomy, Colonoscopy, EGD Female Surgical History: Reports: D&C, Other (See Below) 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 Exam - Exam Exam: See Below - Vital Signs Vital Signs: Last Vital Signs Temp 36.6 C 07/02/19 07:42 Pulse 79 07/02/19 07:42 Resp 14 07/02/19 07:42 BP 148/54 H 07/02/19 07:42 Pulse Ox 92 L 07/02/19 07:42 Weight: 60.6 kg - Exam Extremities: Normal Inspection Skin: Warm, Dry, Intact Neuro Extensive - Mental Status: Alert, Oriented x3, Normal Mood/Affect, Normal Cognition, Memory Intact Neuro Extensive - Motor, Sensory, Reflexes: Other (no sensory deficits) Physical Exam Comments:: Well healed anterior hip scar, no swelling, .warmth or redness, very tender to palpation in the anterior hip and groin and posterior hip, less so over the trochanter, mild pain with slight log roll of the leg, worse with more motion and any attempted active hip flexion - Patient Data Lab Results Last 24 hrs: Laboratory Results - last 24 hr 07/02/19 07/02/19 Range/Units 09:36 09:36 C-Reactive Protein 0.96 H (0.0-0.3) mg/dL Procalcitonin < 0.05 ng/mL Sepsis Event Note - Evaluation Sepsis Screening Result: No Definite Risk - Focused Exam Vital Signs: Vital Signs Temp Pulse Resp BP Pulse Ox 07/02/19 07:42 36.6 C 79 14 148/54 H 92 L 07/02/19 04:00 36.6 C 75 14 173/67 H 93 L 07/02/19 00:00 36.4 C 78 18 175/61 H 91 L Date Exam was Performed: 07/02/19 Time Exam was Performed: 10:17 Consult PN Assessment/Plan Procedures: Procedures ASSAY OF BLOOD/URIC ACID (10/11/14) ASSAY OF TROPONIN QUANT (12/28/18) BONE IMAGING WHOLE BODY (12/17/18) CANALITH REPOSITIONING PROC (04/04/19) CARDIOVASCULAR STRESS TEST (09/07/17) COMP SCREEN MAMMOGRAM ADD-ON (09/09/15) COMPLETE CBC W/AUTO DIFF WBC (12/28/18) COMPREHEN METABOLIC PANEL (12/28/18) CT HEAD/BRAIN W/O DYE (03/16/19) CULTURE SCREEN ONLY (09/12/17) EGD BIOPSY SINGLE/MULTIPLE (09/12/17) EGD REMOVE LESION SNARE (10/11/16) ELECTROCARDIOGRAM REPORT (03/16/19) ELECTROCARDIOGRAM TRACING (03/16/19) EMERGENCY DEPT VISIT (03/16/19) EMERGENCY DEPT VISIT (03/16/19) EMERGENCY DEPT VISIT (12/28/18) EXTRACRANIAL BILAT STUDY (02/07/17) EXTREMITY STUDY (04/11/19) GAIT TRAINING THERAPY (12/03/15) HOT OR COLD PACKS THERAPY (09/01/15) HT MUSCLE IMAGE SPECT MULT (09/07/17) MANUAL THERAPY 1/> REGIONS (07/26/18) MOTION FLUOROSCOPY/SWALLOW (12/25/14) MRI JOINT UPR EXTREM W/O DYE (05/29/17) NEUROMUSCULAR REEDUCATION (10/03/13) OFFICE/OUTPATIENT VISIT EST (02/09/17) OT EVAL MOD COMPLEX 45 MIN (04/04/19) PT EVAL LOW COMPLEX 20 MIN (07/26/18) PT EVALUATION (12/03/15) ROUTINE VENIPUNCTURE (12/28/18) RPR S/N/AX/GEN/TRNK2.6-7.5CM (03/16/19) THERAPEUTIC ACTIVITIES (04/08/19) THERAPEUTIC EXERCISES (07/26/18) TISSUE EXAM BY PATHOLOGIST (10/11/16) TTE W/DOPPLER COMPLETE (02/07/17) ULTRASOUND THERAPY (07/15/16) X-RAY EXAM OF FINGER(S) (10/11/14) X-RAY EXAM OF SHOULDER (03/16/19) X-RAY XM SWLNG FUNCJ C+ (12/25/14) (1) Hip pain, right SNOMED Code(s): 50084650 Code(s): M25.551 - PAIN IN RIGHT HIP Current Visit: Yes (2) History of total right hip replacement SNOMED Code(s): 447047219406 Code(s): Z96.641 - PRESENCE OF RIGHT ARTIFICIAL HIP JOINT Current Visit: No Problem List Initiated/Reviewed/Updated: Yes Plan: X-rays and CT scan reviewed. No obvious fractures, lucencies or evidence of complication with the prosthesis. Agree with CBC, C-RP. Onset and presentation most consistent with insufficiency fracture which is currently occult. Do not think that an MRI would be of any more benefit than the CT scan. It could picking table worker a fracture in the sacrum but metal artifact would obscure anything adjacent to the prosthesis. A bone scan would be useful but can take a few days to turn positive, especially in the elderly. Will follow up on the labs and reassess clinical situation this afternoon.
[2019-07-02] MEDS: Acetaminophen 325 MG Tab PO PRN (10:59)
[2019-07-02] MEDS: OMEPRAZOLE 40MG **PTOM PO SCH (11:34)
[2019-07-02] MEDS: Docusate Sodium 100 MG Cap PO SCH (11:51)
[2019-07-02] MEDS: Aspirin 81 MG Tab.EC PO SCH (11:51)
[2019-07-02] MEDS: Cetirizine 10 MG Tab PO SCH (11:51)
[2019-07-02] MEDS: Levothyroxine 100 MCG **PTOM PO SCH (13:05)
[2019-07-02] MEDS: PROPRANOLOL 10 MG PO SCH (13:05)
[2019-07-02] MEDS ORDERED: HYDROmorphone 1 MG/ML Syringe IVPUSH PRN (13:12)
[2019-07-02] MEDS ORDERED: Sodium Chloride 0.9% 1,000 ML IV SCH (13:15)
--- NOTE | 2019-07-02 13:25 | PCM.PN ---
- General Info Date of Service: 07/02/19 Subjective Update: Ms. Andres is an 88-year-old woman who was admitted through the emergency department last night observation status for further evaluation and management of right groin and buttock pain. She denies any recent falls, noted onset of the pain as she was getting into her vehicle. X-ray and CT scan showed no evidence of obvious fracture but did document muscle inflammation. She has had persistent significant pain since admission requiring use of narcotics for pain control. She has been seen and evaluated by Dr. Reyes. CRP is only mildly elevated, white blood cell count and procalcitonin are within normal range. Functional Status: Reports: Urinating - Review of Systems General: Reports: Weakness, Malaise. Denies: Fever, Chills Cardiovascular: Reports: No Symptoms Gastrointestinal: Reports: No Symptoms Genitourinary: Reports: No Symptoms Musculoskeletal: Reports: Other (Right groin and buttock pain) - Patient Data Vitals - Most Recent: Last Vital Signs Temp 97.8 F 07/02/19 07:42 Pulse 94 07/02/19 10:55 Resp 18 07/02/19 10:55 BP 168/62 H 07/02/19 10:55 Pulse Ox 94 L 07/02/19 10:55 Weight - Most Recent: 134 lb Lab Results Last 24 Hours: Laboratory Results - last 24 hr 07/02/19 07/02/19 07/02/19 Range/Units 09:36 09:36 09:36 WBC 9.2 (4.5-11.0) K/uL RBC 4.18 (3.30-5.50) M/uL Hgb 8.4 L D (12.0-15.0) g/dL Hct 27.7 L (36.0-48.0) % MCV 66 L (80-98) fL MCH 20 L (27-31) pg MCHC 30 L (32-36) % Plt Count 482 H (150-400) K/uL Neut % (Auto) 41 (36-66) % Lymph % (Auto) 30 (24-44) % [place] % (Auto) 13 H (2-6) % Eos % (Auto) 15 H (2-4) % Baso % (Auto) 1 (0-1) % Sodium (140-148) mmol/L Potassium (3.6-5.2) mmol/L Chloride (100-108) mmol/L Carbon Dioxide (21-32) mmol/L Anion Gap (5.0-14.0) mmol/L BUN (7-18) mg/dL Creatinine (0.6-1.0) mg/dL Est Cr Clr Drug Dosing mL/min Estimated GFR (MDRD) (>60) Glucose (74-106) mg/dL Calcium (8.5-10.1) mg/dL C-Reactive Protein 0.96 H (0.0-0.3) mg/dL Procalcitonin < 0.05 ng/mL 07/02/19 Range/Units 11:10 WBC (4.5-11.0) K/uL RBC (3.30-5.50) M/uL Hgb (12.0-15.0) g/dL Hct (36.0-48.0) % MCV (80-98) fL MCH (27-31) pg MCHC (32-36) % Plt Count (150-400) K/uL Neut % (Auto) (36-66) % Lymph % (Auto) (24-44) % [place] % (Auto) (2-6) % Eos % (Auto) (2-4) % Baso % (Auto) (0-1) % Sodium 131 L (140-148) mmol/L Potassium 4.5 (3.6-5.2) mmol/L Chloride 98 L (100-108) mmol/L Carbon Dioxide 24 (21-32) mmol/L Anion Gap 13.5 (5.0-14.0) mmol/L BUN 18 (7-18) mg/dL Creatinine 0.9 (0.6-1.0) mg/dL Est Cr Clr Drug Dosing 38.75 mL/min Estimated GFR (MDRD) 59 L (>60) Glucose 105 (74-106) mg/dL Calcium 9.3 (8.5-10.1) mg/dL C-Reactive Protein (0.0-0.3) mg/dL Procalcitonin ng/mL Med Orders - Current: Current Medications Acetaminophen (Tylenol) 650 mg PO Q6H PRN PRN Reason: Pain Last Admin: 07/02/19 10:59 Dose: 650 mg Aspirin (Halfprin) 81 mg PO DAILY [facility] Last Admin: 07/02/19 11:51 Dose: 81 mg Cetirizine HCl (Zyrtec) 10 mg PO DAILY [facility] Last Admin: 07/02/19 11:51 Dose: 10 mg Docusate Sodium (Colace) 100 mg PO DAILY [facility] Last Admin: 07/02/19 11:51 Dose: 100 mg Hydromorphone HCl (Dilaudid) 1 mg IVPUSH Q2H PRN PRN Reason: Pain Sodium Chloride (Normal Saline) 1,000 mls @ 75 mls/hr IV ASDIRECTED [facility] Ibuprofen (Motrin) 400 mg PO Q6H [facility] Levothyroxine Sodium (Synthroid) 100 mcg PO ACBREAKFAST [facility] Last Admin: 07/02/19 13:05 Dose: 100 mcg Montelukast Sodium (Singulair) 10 mg PO BEDTIME [facility] Ondansetron HCl (Zofran) 4 mg IV Q4H PRN PRN Reason: Nausea/Vomiting Omeprazole 40mg (Ptom) 0 each PO DAILY@0730 [facility] Last Admin: 07/02/19 11:34 Dose: 1 each Propranolol 10mg (Ptom) 0 each PO DAILY [facility] Last Admin: 07/02/19 13:05 Dose: 1 each Sodium Chloride (Saline Flush) 10 ml FLUSH ASDIRECTED PRN PRN Reason: Keep Vein Open Discontinued Medications Fentanyl (Sublimaze) 50 mcg IVPUSH ONETIME ONE Stop: 07/01/19 19:39 Last Admin: 07/01/19 19:52 Dose: 50 mcg Fentanyl (Sublimaze) 50 mcg IVPUSH ONETIME ONE Stop: 07/01/19 21:10 Last Admin: 07/01/19 21:29 Dose: 50 mcg Hydromorphone HCl (Dilaudid) 0.5 mg IVPUSH Q1H PRN PRN Reason: Pain Last Admin: 07/02/19 09:11 Dose: 0.5 mg Hydromorphone HCl (Dilaudid) 0.5 mg IVPUSH ONETIME ONE Stop: 07/02/19 00:09 Last Admin: 07/02/19 00:12 Dose: 0.5 mg Levothyroxine Sodium (Synthroid) 88 mcg PO ACBREAKFAST [facility] Ondansetron HCl (Zofran) 4 mg IVPUSH ONETIME ONE Stop: 07/01/19 21:42 Last Admin: 07/01/19 21:46 Dose: 4 mg Sodium Chloride (Saline Flush) 10 ml FLUSH ASDIRECTED PRN PRN Reason: Keep Vein Open Last Admin: 07/01/19 19:53 Dose: 10 ml - Exam Quality Assessment: DVT Prophylaxis General: Alert, Oriented, Cooperative, Moderate Distress Lungs: Clear to Auscultation, Normal Respiratory Effort Cardiovascular: Regular Rate, Regular Rhythm, No Murmurs GI/Abdominal Exam: Soft, Non-Tender, No Organomegaly, No Distention Extremities: Other (Soft tissue tenderness to palpation right groin buttock and lower back) Sepsis Event Note - Evaluation Sepsis Screening Result: No Definite Risk - Focused Exam Vital Signs: Vital Signs Temp Pulse Resp BP Pulse Ox 07/02/19 10:55 94 18 168/62 H 94 L 07/02/19 07:42 97.8 F 79 14 148/54 H 92 L 07/02/19 04:00 97.8 F 75 14 173/67 H 93 L Date Exam was Performed: 07/02/19 Time Exam was Performed: 13:19 - Problem List Review Problem List Initiated/Reviewed/Updated: Yes - My Orders Last 24 Hours: My Active Orders 07/02/19 13:12 HYDROmorphone [Dilaudid] 1 mg IVPUSH Q2H PRN 07/02/19 13:15 IRON/TIBC [CHEM] Stat Ibuprofen [Motrin] 400 mg PO Q6H Sodium Chloride 0.9% @ 75 MLS/HR(1000ml) Sodium Chloride 0.9% [Normal Saline] 1 ,000 ml IV ASDIRECTED 07/02/19 14:00 Levothyroxine [Synthroid] 100 mcg PO ACBREAKFAST 07/03/19 05:11 HGB [HEMOGLOBIN] [HEME] AM - Plan Plan:: ASSESSMENT AND PLAN RIGHT GROIN AND BUTTOCK PAIN-abrupt onset of pain as she was getting into her vehicle. X-rays and CT scan showed no obvious fracture. She has been seen and evaluated by Dr. Reyes, consider possible insufficiency fracture. Muscular inflammation noted on CT scan. White blood cell count and procalcitonin are normal, mild elevation in CRP. She needs to experience significant pain even while at rest. -Orthopedic follow-up per Dr. Reyes -Increase Dilaudid to 1 mg IV every 2 hours as needed for pain -IV fluids for hydration, oral intake has been poor -Ibuprofen 400 mg p.o. every 6 hours, closely monitor renal function MAINTENANCE ISSUES -DVT prophylaxis; Lovenox 40 mg subcu daily -GI prophylaxis; not indicated -Downs catheter; not indicated -Nutrition; regular diet -Nicotine dependence; not required CODE STATUS-FULL CODE ADMISSION STATUS-this patient will be admitted to observation status, expect no more than a one night hospital stay for evaluation and management of problems as outlined above. DISPOSITION-anticipate discharge to home after the hospital stay. PRIMARY CARE PROVIDER-Dr. Kim
[2019-07-02] MEDS: Ibuprofen 400 MG Tab PO SCH ×2 (15:26→20:40)
[2019-07-02] MEDS: Enoxaparin 40 MG/0.4 ML Syringe SUBCUT SCH (15:26)
[2019-07-02] MEDS ORDERED: Sodium Ferric Gluconate Cmplex 250 MG in Sodium Chloride 0.9% 100 ML IV ONE (15:30)
[2019-07-02] MEDS ORDERED: Montelukast 10 MG **PTOM PO SCH (21:00)
[2019-07-03] MEDS: Ibuprofen 400 MG Tab PO SCH ×3 (02:09→15:35)
[2019-07-03] MEDS: Levothyroxine 100 MCG **PTOM PO SCH (07:35)
[2019-07-03] MEDS: OMEPRAZOLE 40MG **PTOM PO SCH (07:35)
[2019-07-03] MEDS: Docusate Sodium 100 MG Cap PO SCH (08:09)
[2019-07-03] MEDS: Aspirin 81 MG Tab.EC PO SCH (08:09)
[2019-07-03] MEDS: Cetirizine 10 MG Tab PO SCH (08:10)
[2019-07-03] MEDS: PROPRANOLOL 10 MG PO SCH (08:11)
[2019-07-03] MEDS: Acetaminophen 325 MG Tab PO PRN (09:31)
[2019-07-03 11:12] VITALS: BP 134/49; PULSE 58
--- NOTE | 2019-07-03 12:27 | PCM.DCSUM1 ---
Discharge Summary - Hospital Course Brief History: Ms. Andres is an 88-year-old woman who was admitted to observation status through the emergency department with severe right groin and buttock pain secondary to muscle strain and inflammation. - Discharge Data Discharge Date: 07/03/19 Discharge Disposition: Home, W Home Health Agency 06 Condition: Stable - Referral to Home Health Date of Face to Face Encounter: 07/03/19 Reason for Homebound Status: Muscle strain with severe pain right buttock and groin Primary Care Physician: Rupesh Kim MD Skilled Need: Scheduled nursing visits, home physical therapy and Occupational Therapy. - Discharge Diagnosis/Problem(s) (1) Muscle strain of right thigh SNOMED Code(s): 405620324, [id number] ICD Code: S76.911A - STRAIN OF UNSP MUSC/FASC/TEND AT THI LEV, RIGHT THIGH, INIT Status: Acute Current Visit: Yes (2) Hip pain, right SNOMED Code(s): 46513396 ICD Code: M25.551 - PAIN IN RIGHT HIP Status: Acute Current Visit: Yes (3) Microcytic anemia SNOMED Code(s): 166526784 ICD Code: D50.9 - IRON DEFICIENCY ANEMIA, UNSPECIFIED Status: Acute Current Visit: Yes (4) Iron deficiency SNOMED Code(s): 33726631 ICD Code: E61.1 - IRON DEFICIENCY Status: Acute Current Visit: Yes - Patient Summary/Data Consults: Consultations 07/02/19 00:00 Consult to Physician [CONS] Routine Consulting Provider: Benitez Reyes Courtesy Call Completed to Consulting Physician: No Reason for Consult: right hip pain 07/02/19 11:48 Consult to Physical Therapy [PT Evaluation and Treatment] [CONS] Routine Please Evaluate and Treat. PT Reason for Consult: Ambulation Special Instructions: WBAT right hip This query below is only for informational purposes and is not editable. Admission Diagnosis/Problem: Hip pain 07/03/19 09:42 Consult to Physical Therapy [PT Evaluation and Treatment] [CONS] Routine Please Evaluate and Treat. PT Reason for Consult: Strengthening Pending Discharge: Yes Discharge Disposition: Home This query below is only for informational purposes and is not editable. Admission Diagnosis/Problem: Hip pain Hospital Course: Ms. Andres is an 88-year-old woman who was admitted through the emergency department to observation status for further evaluation and management of right groin and buttock pain. She denies any recent falls, noted onset of the pain as she was getting into her vehicle. X-ray and CT scan showed no evidence of obvious fracture but did document muscle inflammation. She has had persistent significant pain since admission requiring use of narcotics for pain control. She has been seen and evaluated by Dr. Reyes. CRP is only mildly elevated, white blood cell count and procalcitonin are within normal range. She was found to have acceptable renal function and was started on scheduled ibuprofen, narcotics tended to make her very sleepy and were ineffective in controlling her pain. On follow-up by Dr. Reyes, he felt there was a small possibility of an insufficiency fracture. There was no evidence of fracture noted on imaging and it was felt to be too early in the course of this to consider a bone scan. By the morning of discharge she was walking with use of a walker, pain was significantly improved. She was seen and evaluated by physical therapy prior to discharge. She was also noted to be very anemic with a hemoglobin of 8 and microcytic indices. Iron levels were obtained and found to be very low. She has had an intolerance to oral iron and anemia has been fairly chronic. She was given 2 doses of IV iron infusion prior to discharge and will require follow-up hemoglobin early next week. She has been instructed to take the ibuprofen as needed and with something to eat. BMP and CBC will be obtained on Monday, July 07. Follow-up appointment will be scheduled with Dr. Kim within 1 week. Follow-up appointment will be scheduled with Dr. Reyes in 1 week. Activity will be as tolerated and she will resume her usual diet. - Patient Instructions Diet: Usual Diet as Tolerated Activity: As Tolerated Other/Special Instructions: Please schedule follow-up appointment with Dr. Kim within 1 week. Follow-up labs; BMP and CBC should be obtained on Monday, July 07. Please arrange for home care services with home physical therapy and Occupational Therapy. - Discharge Plan *PRESCRIPTION DRUG MONITORING PROGRAM REVIEWED*: Not Applicable *COPY OF PRESCRIPTION DRUG MONITORING REPORT IN PATIENT KATHERINE: Not Applicable Prescriptions/Med Rec: Ibuprofen 200 - 400 mg PO Q6H #50 tablet Home Medications: Home Meds Aspirin [Adult Low Dose Aspirin EC] 81 mg PO DAILY 02/04/13 [History] Docusate Sodium [Colace] 100 mg PO DAILY 02/04/13 [History] Omeprazole [Prilosec] 40 mg PO DAILY 02/04/13 [History] Acetaminophen [Tylenol Arthritis] 650 mg PO Q6H PRN 10/07/16 [History] Cetirizine [ZyrTEC] 10 mg PO DAILY 10/07/16 [History] Montelukast [Singulair] 10 mg PO BEDTIME 10/07/16 [History] Propranolol [Inderal] 10 mg PO DAILY 09/05/17 [History] Levothyroxine [Synthroid] 100 mcg PO DAILY 07/02/19 [History] Ibuprofen 200 - 400 mg PO Q6H #50 tablet 07/03/19 [Rx] Referrals: Rupesh Kim MD [Primary Care Provider] - - Discharge Summary/Plan Comment DC Time >30 min.: No - Patient Data Vitals - Most Recent: Last Vital Signs Temp 97.0 F 07/03/19 11:00 Pulse 58 L 07/03/19 11:00 Resp 16 07/03/19 11:00 BP 134/49 L 07/03/19 11:00 Pulse Ox 97 07/03/19 11:00 Weight - Most Recent: 134 lb I&O - Last 24 hours: Intake & Output 07/02/19 07/03/19 07/03/19 22:59 06:59 14:59 Intake Total 938 250 Output Total 500 200 Balance 438 50 Lab Results - Last 24 hrs: Laboratory Results - last 24 hr 07/02/19 07/03/19 07/03/19 Range/Units 13:15 04:42 08:25 Hgb 7.9 L (12.0-15.0) g/dL Sodium 131 L (140-148) mmol/L Potassium 4.8 (3.6-5.2) mmol/L Chloride 101 (100-108) mmol/L Carbon Dioxide 23 (21-32) mmol/L Anion Gap 11.8 (5.0-14.0) mmol/L BUN 16 (7-18) mg/dL Creatinine 0.8 (0.6-1.0) mg/dL Est Cr Clr Drug Dosing 43.59 mL/min Estimated GFR (MDRD) > 60 (>60) Glucose 84 (74-106) mg/dL Calcium 8.4 L (8.5-10.1) mg/dL Iron 17 L (50-170) ug/dL TIBC 406 (250-450) ug/dl % Saturation 4 L (20-55) % Med Orders - Current: Current Medications Acetaminophen (Tylenol) 650 mg PO Q6H PRN PRN Reason: Pain Last Admin: 07/03/19 09:31 Dose: 650 mg Aspirin (Halfprin) 81 mg PO DAILY [facility] Last Admin: 07/03/19 08:09 Dose: 81 mg Cetirizine HCl (Zyrtec) 10 mg PO DAILY [facility] Last Admin: 07/03/19 08:10 Dose: 10 mg Docusate Sodium (Colace) 100 mg PO DAILY [facility] Last Admin: 07/03/19 08:09 Dose: 100 mg Enoxaparin Sodium (Lovenox) 40 mg SUBCUT Q24H [facility] Last Admin: 07/02/19 15:26 Dose: 40 mg Hydromorphone HCl (Dilaudid) 1 mg IVPUSH Q2H PRN PRN Reason: Pain Last Admin: 07/02/19 16:54 Dose: 1 mg Ferric Sodium Gluconate Complex 250 mg/ Sodium Chloride 120 mls @ 60 mls/hr IV ONETIME ONE Stop: 07/03/19 15:59 Ibuprofen (Motrin) 400 mg PO Q6H [facility] Last Admin: 07/03/19 08:08 Dose: 400 mg Levothyroxine Sodium (Synthroid) 100 mcg PO ACBREAKFAST [facility] Last Admin: 07/03/19 07:35 Dose: 100 mcg Montelukast Sodium (Singulair) 10 mg PO BEDTIME [facility] Last Admin: 07/02/19 20:40 Dose: 10 mg Ondansetron HCl (Zofran) 4 mg IV Q4H PRN PRN Reason: Nausea/Vomiting Omeprazole 40mg (Ptom) 0 each PO DAILY@0730 [facility] Last Admin: 07/03/19 07:35 Dose: 1 each Propranolol 10mg (Ptom) 0 each PO DAILY [facility] Last Admin: 07/03/19 08:11 Dose: 1 each Sodium Chloride (Saline Flush) 10 ml FLUSH ASDIRECTED PRN PRN Reason: Keep Vein Open Discontinued Medications Fentanyl (Sublimaze) 50 mcg IVPUSH ONETIME ONE Stop: 07/01/19 19:39 Last Admin: 07/01/19 19:52 Dose: 50 mcg Fentanyl (Sublimaze) 50 mcg IVPUSH ONETIME ONE Stop: 07/01/19 21:10 Last Admin: 07/01/19 21:29 Dose: 50 mcg Hydromorphone HCl (Dilaudid) 0.5 mg IVPUSH Q1H PRN PRN Reason: Pain Last Admin: 07/02/19 09:11 Dose: 0.5 mg Hydromorphone HCl (Dilaudid) 0.5 mg IVPUSH ONETIME ONE Stop: 07/02/19 00:09 Last Admin: 07/02/19 00:12 Dose: 0.5 mg Sodium Chloride (Normal Saline) 1,000 mls @ 75 mls/hr IV ASDIRECTED [facility] Last Admin: 07/02/19 20:40 Dose: 75 mls/hr Ferric Sodium Gluconate Complex 250 mg/ Sodium Chloride 120 mls @ 60 mls/hr IV ONETIME ONE Stop: 07/02/19 17:29 Last Admin: 07/02/19 16:45 Dose: 60 mls/hr Levothyroxine Sodium (Synthroid) 88 mcg PO ACBREAKFAST [facility] Ondansetron HCl (Zofran) 4 mg IVPUSH ONETIME ONE Stop: 07/01/19 21:42 Last Admin: 07/01/19 21:46 Dose: 4 mg Sodium Chloride (Saline Flush) 10 ml FLUSH ASDIRECTED PRN PRN Reason: Keep Vein Open Last Admin: 07/01/19 19:53 Dose: 10 ml - Exam General: Reports: Alert, Oriented, Cooperative, Mild Distress Lungs: Reports: Clear to Auscultation, Normal Respiratory Effort Cardiovascular: Reports: Regular Rate, Regular Rhythm GI/Abdominal Exam: Soft, Non-Tender, No Organomegaly, No Distention Extremities: Other (Tenderness to palpation of soft tissue buttock and groin)
[2019-07-03] MEDS ORDERED: Sodium Ferric Gluconate Cmplex 250 MG in Sodium Chloride 0.9% 100 ML IV ONE (14:00)
--- NOTE | 2019-07-03 14:34 | HP ---
CHIEF COMPLAINT: Right hip pain. HISTORY OF PRESENT ILLNESS: An 88-year-old who, a few years ago at [facility] in [place], had right total hip arthroplasty. She was getting into her vehicle today and stepped up into the vehicle. All of a sudden had severe pain in the right hip, hurts in the groin, but also posteriorly. Was evaluated by emergency room physician. Was given fentanyl for pain, which did help just slightly, but did not last, and she just did not feel like she could go home and was not able to walk on it, even with the use of a walker, and I was asked to admit the patient for further evaluation and treatment. Other than the pain, patient denies any complaints, but she states that it goes down to her foot. 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 Otherwise, patient denied any other complaints. PAST MEDICAL HISTORY: 1. Right total hip arthroplasty a few years ago down in [place]. 2. Hypothyroidism. 3. Gastroesophageal reflux disease. CURRENT MEDICATIONS: Acetaminophen p.r.n., aspirin 81 mg daily, cetirizine 10 mg daily, docusate 100 mg daily, levothyroxine 88 mcg daily, montelukast 10 mg at bedtime, omeprazole 40 mg daily, propranolol 10 mg daily. ALLERGIES: SULFA, LISINOPRIL, SUCRALFATE. SOCIAL HISTORY: Has not smoked for 20 years. No alcohol use. FAMILY HISTORY: Both parents of complications of cancer. REVIEW OF SYSTEMS: Denies upper respiratory symptoms. No chest pain, shortness of breath. She did have a little bit of nausea. No vomiting. No diarrhea or constipation. No urinary problems reported. Denies any swelling in her legs. No skin problems. Orthopedic complaints as above. PHYSICAL EXAMINATION: VITAL SIGNS: Weight 56 kg, temp 36.9, pulse 81, blood pressure 212/69, recheck was 194/78, respirations 16, O2 saturation 98% on room air. GENERAL: The patient does look like she is in a fair amount of discomfort, especially with any type of movement to the right hip. HEENT: Pharynx is clear. NECK: Supple. No adenopathy, thyromegaly, JVD, or carotid bruits. LUNGS: Clear. HEART: Regular without murmurs. ABDOMEN: Soft and nontender. No mass or organomegaly palpated. EXTREMITIES: No edema. Does have pain with moving her foot. She does have discomfort in the posterior right hip and also down towards her groin and proximal thigh. There is no swelling or bruising or erythema. Not as much pain in the greater trochanteric area. She has intact sensation to her lower extremities, but with movement of her toes on the right side, she does have increased pain in the hip area. NEUROLOGIC: Cranial nerves 2 through 12 grossly intact. Alert and oriented. IMAGING DATA: X-ray of her hip showed no fracture. Shows her previous right hip arthroplasty. Hip CT shows right total hip arthroplasty. No fracture identified, but due to artifact, radiologist has a hard time seeing much of the structure. 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 Grade 1 anterolisthesis of L4 and L5. Severe degenerative disk disease with broad-based disk protrusion noted. ASSESSMENT: Right hip pain. No definite fracture of her hip identified. Arthroplasty looks intact. Question if it may be coming from her back. She did have some soft tissue swelling in the proximal right thigh, question muscle injury. She has received IV fentanyl, which does help with her pain but does not last very long. We will try Dilaudid and see if that helps any better. We will admit her under observation to see if Orthopedic Surgery can see her in the morning. Otherwise, we will continue with her usual home medications. Marin Foster MD /[id number]
[2019-07-03] MEDS: Enoxaparin 40 MG/0.4 ML Syringe SUBCUT SCH (15:36)
== END 2019-07-03 16:05 | disposition home health service (06) ==
LOC: JP.ED 19:02 → JP.ICU 07-02 → JP.MS 07-03 08:41
PROVIDERS: ADMIT Family Medicine; ATTEND Hospitalist
DX: S76.911A Strain of unspecified muscles, fascia and tendons at thigh level, right thigh, initial encounter (principal); M25.551 Pain in right hip; E78.00 Pure hypercholesterolemia, unspecified; D50.9 Iron deficiency anemia, unspecified; K21.9 Gastro-esophageal reflux disease without esophagitis; E03.9 Hypothyroidism, unspecified; Z79.899 Other long term (current) drug therapy; Z96.641 Presence of right artificial hip joint; Z91.048 Other nonmedicinal substance allergy status; Z79.82 Long term (current) use of aspirin; Z79.890 Hormone replacement therapy; Z88.8 Allergy status to other drugs, medicaments and biological substances; Z88.2 Allergy status to sulfonamides; X58.XXXA Exposure to other specified factors, initial encounter
CPT/HCPCS: 36415; 73501; 73700; 80048; 83550; 84145; 85018; 85025; 86140; 96374; 96375; 96376; 97110; 97161; 97530; 99217; 99225; 99284; 99285; A9270; J1170; J1650; J2405; J2916; J3010; J7030; J7050

== ENCOUNTER 2020-06-22 06:59 | Day surgery (SDC) | payer MEDICARE ==
[2020-06-22] MEDS ORDERED: fentaNYL 100 MCG/2 ML SDV ONE (07:23)
[2020-06-22] MEDS ORDERED: Propofol 200 MG/20 ML SDV ONE (07:23)
[2020-06-22] MEDS ORDERED: Dextrose 5%-Lactated Ringers 1,000 ML IV SCH (07:30)
[2020-06-22] MEDS ORDERED: Pantoprazole 40 MG Vial IVPUSH ONE (10:27)
[2020-06-22 11:52] VITALS: BP 142/68; PULSE 71
--- NOTE | 2020-06-29 20:01 | OR ---
DATE OF PROCEDURE: 06/22/2020 SURGEON: Valentino Du MD PREOPERATIVE DIAGNOSES: History of gastritis and peptic ulcer disease along with gastroesophageal reflux disease with current iron-deficiency anemia. POSTOPERATIVE DIAGNOSES: 1. History of gastritis and peptic ulcer disease along with gastroesophageal reflux disease with current iron-deficiency anemia. 2. Upper endoscopy showing: a. 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 b. Focal erosions within the antrum in the field of antral gastritis. 3. 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 OPERATIVE PROCEDURE: Esophagogastroduodenoscopy with: 1. Biopsies of esophagogastric junction for histologic evaluation. 2. Biopsies of antrum for CLOtest. ANESTHESIA: IV sedation. INDICATIONS FOR PROCEDURE: This is an 89-year-old female, presenting with some iron- deficiency anemia. She has a history of gastroesophageal reflux disease, gastritis, and peptic ulcer disease in the past, and presently is on omeprazole 40 mg daily. The plan is to proceed with an upper GI endoscopy with biopsies as indicated. Potential risks including bleeding and perforation were discussed, and the patient wishes to proceed. DETAILS OF PROCEDURE: The patient was taken to the operating room and placed in a left lateral decubitus position. IV sedation was administered, after which the upper GI endoscope was passed orally through the length of the esophagus into the stomach with retroflexion view of the fundus, and thereafter through the pyloric channel into the junction of the 3rd and 4th portions of the duodenum. Findings included normal hypopharynx, larynx, upper esophageal sphincter, esophageal body. At the EG junction, the patient was noted to have a small hiatal hernia with active reflux disease. 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 No stricturing, plaquing, or gross evidence of neoplasia were seen. Within the stomach, the proximal stomach was unremarkable apart from the small hiatal hernia. However, within the antrum, there was diffuse antral gastritis. Within this were several erosions present. There are presently covered with fibrinous exudate. Within the body, fundus of the stomach, there were multiple fundic gland polyps typical for long-term proton pump inhibitor use. These appeared to be problematic in terms of their overall appearance. The pyloric channel and proximal duodenum were unremarkable. There was no enlargement or abnormality noted at the ampulla of Vater. At this point, biopsies were obtained from the antrum and sent for CLOtest for H pylori. Multiple biopsies were then obtained from the esophagogastric junction, sent for histologic evaluation. Minimal bleeding from the biopsy sites was seen and the procedure was then concluded. The patient could have had recent or ongoing intermittent GI bleeding from either the distal esophagitis or the erosions within the antrum. At this point, no active bleeding was seen, however, we will probably increase her omeprazole dose from 40 mg daily to 40 mg b.i.d. We will call her if the CLOtest is positive regarding antibiotic treatment. Otherwise, she will be following up with Dr. Kim in 3 to 4 weeks. Valentino Du MD /[id number]
== END 2020-06-22 11:40 | disposition home or self-care (01) ==
LOC: JP.SDS 06:59
PROVIDERS: ATTEND Surgery
DX: K29.50 Unspecified chronic gastritis without bleeding (principal); D50.9 Iron deficiency anemia, unspecified; K21.9 Gastro-esophageal reflux disease without esophagitis; K25.9 Gastric ulcer, unspecified as acute or chronic, without hemorrhage or perforation; K31.7 Polyp of stomach and duodenum; J44.9 Chronic obstructive pulmonary disease, unspecified; I12.9 Hypertensive chronic kidney disease with stage 1 through stage 4 chronic kidney disease, or unspecified chronic kidney disease; N18.9 Chronic kidney disease, unspecified; Z87.11 Personal history of peptic ulcer disease
CPT/HCPCS: 43239; 87081; 88305; C9113; J2704; J3010; J7121

== ENCOUNTER 2021-07-15 11:44 | Emergency (ER) | payer MEDICARE ==
[2021-07-15 12:53] VITALS: BP 172/81; PULSE 67
== END 2021-07-15 12:53 | disposition home or self-care (01) ==
LOC: JP.ED 11:44
DX: S00.03XA Contusion of scalp, initial encounter (principal); S80.12XA Contusion of left lower leg, initial encounter; E78.00 Pure hypercholesterolemia, unspecified; E03.9 Hypothyroidism, unspecified; Z88.2 Allergy status to sulfonamides; Z91.048 Other nonmedicinal substance allergy status; Z88.8 Allergy status to other drugs, medicaments and biological substances; Z79.899 Other long term (current) drug therapy; Z79.82 Long term (current) use of aspirin; W22.09XA Striking against other stationary object, initial encounter
CPT/HCPCS: 99282; 99283

== ENCOUNTER 2021-09-08 16:43 | Emergency (ER) | payer MEDICARE ==
[2021-09-08 17:00] VITALS: BP 188/78; PULSE 87
== END 2021-09-08 18:12 | disposition home or self-care (01) ==
LOC: JP.ED 16:43
DX: R00.2 Palpitations (principal); K21.9 Gastro-esophageal reflux disease without esophagitis; I10 Essential (primary) hypertension; Z88.2 Allergy status to sulfonamides; Z88.8 Allergy status to other drugs, medicaments and biological substances; Z91.048 Other nonmedicinal substance allergy status; Z79.899 Other long term (current) drug therapy; Z79.82 Long term (current) use of aspirin; Z90.49 Acquired absence of other specified parts of digestive tract; Z87.891 Personal history of nicotine dependence
CPT/HCPCS: 93005; 93010; 99281; 99284

== ENCOUNTER 2022-03-01 09:15 | Emergency (ER) | payer MEDICARE ==
[2022-03-01 09:43] VITALS: BP 165/63; PULSE 74
== END 2022-03-01 10:56 | disposition home or self-care (01) ==
LOC: JP.ED 09:15
DX: I42.2 Other hypertrophic cardiomyopathy (principal); I87.2 Venous insufficiency (chronic) (peripheral); I10 Essential (primary) hypertension; Z88.2 Allergy status to sulfonamides; Z88.8 Allergy status to other drugs, medicaments and biological substances; Z91.048 Other nonmedicinal substance allergy status; Z79.82 Long term (current) use of aspirin; Z79.899 Other long term (current) drug therapy; Z90.49 Acquired absence of other specified parts of digestive tract
CPT/HCPCS: 99283